=== PATIENT | male | born 1950 | race Caucasian/White ===

== ENCOUNTER → 2017-02-23 | Outpatient (CLI) | payer MEDICARE ==
[~2017-02-23] MED LIST: ALLO300T PO; GADOBUTROL 10 MMOL/10 ML VIAL ONE; LISI-167 PO; MILK140C PO; MULT-516 PO; OMEG1CAP12 PO; PANT40TA5 PO; VITA100022 PO
== END | disposition home or self-care (01) ==
LOC: CFH 08:14
DX: I81 Portal vein thrombosis (principal); K76.0 Fatty (change of) liver, not elsewhere classified
CPT/HCPCS: 74183; A9585

== ENCOUNTER → 2018-03-24 | Outpatient (CLI) | payer MEDICARE ==
[~2018-03-24] MED LIST changes: +GADOBUTROL 10 MMOL/10 ML PFS ONE; -GADOBUTROL 10 MMOL/10 ML VIAL ONE; -OMEG1CAP12 PO; +OMEG1CAP23 PO
== END | disposition home or self-care (01) ==
LOC: RAD 07:25
PROVIDERS: ATTEND Internal Medicine
DX: I81 Portal vein thrombosis (principal); K76.0 Fatty (change of) liver, not elsewhere classified
CPT/HCPCS: 74183; A9585

== ENCOUNTER 2018-06-08 09:33 | Emergency (ER) | payer MEDICARE, BC ==
[~2018-06-08] VITALS: Ht 172.7 cm; Wt 86.4 kg
[~2018-06-08 09:33] MED LIST changes: -GADOBUTROL 10 MMOL/10 ML PFS ONE
[2018-06-08] MEDS ORDERED: DILTIAZEM 30 MG TABLET PO SCH (10:00)
[2018-06-08] MEDS ORDERED: DILTIAZEM 60 MG TABLET ONE ×2 (10:13→10:53)
[2018-06-08 10:19] LABS: MEAN CORPUSCULAR HEMOGLOBIN 32.4 pg (27.5-34.5); MEAN CORPUSCULAR HGB CONC 33.9 g/dL (33.2-36.2); MEAN CORPUSCULAR VOLUME 95.5 fL (81-97); RED BLOOD COUNT 5.31 x10^6/uL (4.38-5.82); RED CELL DISTRIBUTION WIDTH 14.8 % (9.4-14.8)
[2018-06-08 10:25] LABS: ALBUMIN 4.1 g/dL (3.4-5.0); ANION GAP 7 mmol/L (5-15); CALCIUM 9.5 mg/dL (8.5-10.1); CHLORIDE 108 mmol/L (98-107); CREATININE 1.31 mg/dL (0.7-1.3)
[2018-06-08 10:28] LABS: INTERNATIONAL NORMALIZED RATIO 2.82 (0.93-1.1); PROTHROMBIN TIME 28.7 Seconds (9.6-11.5); TROPONIN I < 0.015 ng/mL (0.000-0.045)
[2018-06-08 10:56] LABS: BASOPHILS # (AUTO) 0.03 x10^3/uL (0-0.1); BASOPHILS % (AUTO) 1 % (0-1); EOSINOPHILS # (AUTO) 0.04 x10^3/uL (0-0.4); EOSINOPHILS % (AUTO) 1 % (1-7); LYMPHOCYTES # (AUTO) 1.16 x10^3/uL (1-3.4); LYMPHOCYTES % (AUTO) 22 % (22-44); MD SCAN; MEAN PLATELET VOLUME 10.5 fL (7.4-10.4); MONOCYTES # (AUTO) 0.44 x10^3/uL (0.2-0.8); MONOCYTES % (AUTO) 8 % (2-9); NEUTROPHILS # (AUTO) 3.64 x10^3/uL (1.8-6.8); NEUTROPHILS % (AUTO) 69 % (42-75); PLATELET COUNT 94 x10^3/uL (130-400)
[2018-06-08] MEDS ORDERED: DILTIAZEM 30 MG TABLET PO ONE (11:00)
[2018-06-08] MEDS ORDERED: VERAPAMIL 2.5 MG/ML, 2ML IVPush ONE (11:00)
[2018-06-08] MEDS ORDERED: VERAPAMIL 2.5 MG/ML, 2ML ONE (11:06)
[2018-06-08 13:15] VITALS: BP 102/62
[2018-06-09] MEDS ORDERED: DILT120T4 PO (09:43)
== END 2018-06-08 13:17 | disposition home or self-care (01) ==
LOC: ED 12:40
DX: I48.91 Unspecified atrial fibrillation (principal); Z79.01 Long term (current) use of anticoagulants; I10 Essential (primary) hypertension
CPT/HCPCS: 36415; 71045; 80048; 82040; 83880; 84484; 85025; 85610; 93005; 96374; 99285

== ENCOUNTER 2018-06-09 09:19 | Emergency (ER) | payer MEDICARE, BC ==
[~2018-06-09] VITALS: Ht 179.1 cm; Wt 87.6 kg
[2018-06-09] MEDS ORDERED: VERAPAMIL 2.5 MG/ML, 2ML ONE (09:37)
[2018-06-09] MEDS ORDERED: DILT120T4 PO (09:43)
[2018-06-09] MEDS ORDERED: VERAPAMIL 2.5 MG/ML, 2ML IVPush ONE (10:00)
[2018-06-09 11:22] VITALS: BP 105/74
== END 2018-06-09 11:50 | disposition home or self-care (01) ==
LOC: ED 10:28
DX: I48.91 Unspecified atrial fibrillation (principal); Z79.01 Long term (current) use of anticoagulants; I10 Essential (primary) hypertension; Z87.891 Personal history of nicotine dependence
CPT/HCPCS: 93005; 96374; 99284

== ENCOUNTER 2018-06-13 11:38 | Emergency (ER) | payer MEDICARE, BC ==
[~2018-06-13] VITALS: Ht 177.8 cm; Wt 87.0 kg
[~2018-06-13 11:38] MED LIST changes: +DILT120T4 PO
[2018-06-13 12:24] LABS: ALBUMIN 4.1 g/dL (3.4-5.0); ANION GAP 8 mmol/L (5-15); CALCIUM 9.2 mg/dL (8.5-10.1); CHLORIDE 105 mmol/L (98-107); CREATININE 1.56 mg/dL (0.7-1.3)
[2018-06-13 12:28] LABS: TROPONIN I < 0.015 ng/mL (0.000-0.045)
[2018-06-13 12:33] LABS: BASOPHILS # (AUTO) 0.03 x10^3/uL (0-0.1); BASOPHILS % (AUTO) 1 % (0-1); EOSINOPHILS # (AUTO) 0.08 x10^3/uL (0-0.4); EOSINOPHILS % (AUTO) 1 % (1-7); LYMPHOCYTES # (AUTO) 1.79 x10^3/uL (1-3.4); LYMPHOCYTES % (AUTO) 26 % (22-44); MD SCAN; MEAN CORPUSCULAR HEMOGLOBIN 32.5 pg (27.5-34.5); MEAN CORPUSCULAR HGB CONC 34.3 g/dL (33.2-36.2); MONOCYTES # (AUTO) 0.63 x10^3/uL (0.2-0.8); MONOCYTES % (AUTO) 9 % (2-9); NEUTROPHILS # (AUTO) 4.24 x10^3/uL (1.8-6.8); NEUTROPHILS % (AUTO) 63 % (42-75); PLATELET COUNT 99 x10^3/uL (130-400); RED BLOOD COUNT 5.22 x10^6/uL (4.38-5.82); RED CELL DISTRIBUTION WIDTH 14.9 % (9.4-14.8)
[2018-06-13] MEDS ORDERED: WARF3TAB52 PO (13:19)
[2018-06-13] MEDS ORDERED: METOPROLOL TARTRATE 50 MG TABLET ONE (13:22)
[2018-06-13] MEDS ORDERED: METOPROLOL TARTRATE 50 MG TABLET PO ONE (13:30)
[2018-06-13 15:08] VITALS: BP 140/81
== END 2018-06-13 15:10 | disposition home or self-care (01) ==
LOC: ED 15:04
DX: I48.0 Paroxysmal atrial fibrillation (principal); I81 Portal vein thrombosis; I10 Essential (primary) hypertension; Z86.711 Personal history of pulmonary embolism; Z87.891 Personal history of nicotine dependence; Z79.01 Long term (current) use of anticoagulants
CPT/HCPCS: 36415; 80048; 82040; 83735; 84484; 85025; 93005; 99285

== ENCOUNTER 2018-06-27 10:17 | Emergency (ER) | payer MEDICARE, BC ==
[~2018-06-27] VITALS: Ht 177.8 cm; Wt 88.3 kg
[~2018-06-27 10:17] MED LIST changes: +WARF3TAB52 PO
[2018-06-27 11:19] VITALS: BP 120/80
[2018-06-27] MEDS ORDERED: DILT240C61 PO (11:22)
[2018-06-27] MEDS ORDERED: CARDIA XT (11:22)
[2018-06-27 11:33] LABS: INTERNATIONAL NORMALIZED RATIO 3.19 (0.93-1.1); PROTHROMBIN TIME 32.4 Seconds (9.6-11.5)
[2018-06-27 11:35] LABS: ANION GAP 10 mmol/L (5-15); CALCIUM 8.4 mg/dL (8.5-10.1); CHLORIDE 108 mmol/L (98-107); CREATININE 1.31 mg/dL (0.7-1.3)
== END 2018-06-27 12:27 | disposition home or self-care (01) ==
LOC: ED 10:54
DX: I48.0 Paroxysmal atrial fibrillation (principal); I10 Essential (primary) hypertension
CPT/HCPCS: 36415; 80048; 83735; 85610; 93005; 99285

== ENCOUNTER 2019-01-26 11:59 | Outpatient (CLI) | payer BC, MEDICARE ==
[~2019-01-26 11:59] MED LIST changes: +CARDIA XT; +DILT240C61 PO
== END 2019-01-26 12:00 | disposition home or self-care (01) ==
LOC: CLISVCS 11:59 → CACL 12:00 → CLISVCS 12:00 → EDSTATUS 12:15
PROVIDERS: ATTEND Internal Medicine Cardiovascular Disease
DX: I48.0 Paroxysmal atrial fibrillation (principal); Z53.9 Procedure and treatment not carried out, unspecified reason; I10 Essential (primary) hypertension; G47.30 Sleep apnea, unspecified; Z72.89 Other problems related to lifestyle; Z91.013 Allergy to seafood; Z87.891 Personal history of nicotine dependence
CPT/HCPCS: 93005

== ENCOUNTER 2020-05-10 15:26 | Emergency (ER) | payer MEDICARE ==
[~2020-05-10] VITALS: Ht 177.8 cm; Wt 89.2 kg
[2020-05-10 17:13] LABS: ALANINE AMINOTRANSFERASE 67 U/L (12-78); ALBUMIN 4.2 g/dL (3.4-5.0); ANION GAP 10 mmol/L (5-15); CALCIUM 9.4 mg/dL (8.5-10.1); CHLORIDE 106 mmol/L (98-107); CREATININE 1.42 mg/dL (0.7-1.3)
--- NOTE | 2020-05-10 17:14 | NUR ---
pt up to use restroom. prior to ambulation pt was in sinus rhythm at a rate of 80. post ambulating pt placed on shearing shed hand pt is agian in a fib at a rate of 110 to 125. made aware.
[2020-05-10 17:16] LABS: ALKALINE PHOSPHATASE 60 U/L (45-117); BILIRUBIN,TOTAL 0.6 mg/dL (0.2-1.0); TOTAL PROTEIN 8.6 g/dL (6.4-8.2); TROPONIN I < 0.015 ng/mL (0.000-0.045)
--- NOTE | 2020-05-10 17:29 | NUR ---
in room for recheck
[2020-05-10] MEDS ORDERED: METOPROLOL 1 MG/ML, 5ML IVPush ONE (17:30)
[2020-05-10] MEDS ORDERED: METOPROLOL 1 MG/ML, 5ML ONE (17:32)
--- NOTE | 2020-05-10 17:38 | NUR ---
pt medicated per order.
[2020-05-10 17:42] LABS: MEAN CORPUSCULAR HEMOGLOBIN 32.4 pg (27.5-34.5); MEAN CORPUSCULAR HGB CONC 33.5 g/dL (33.2-36.2); MEAN CORPUSCULAR VOLUME 96.8 fL (81-97); PLATELET COUNT 97 x10^3/uL (130-400); RED BLOOD COUNT 5.26 x10^6/uL (4.38-5.82); RED CELL DISTRIBUTION WIDTH 14.9 % (9.4-14.8)
[2020-05-10 17:43] LABS: BASOPHILS # (AUTO) 0.02 x10^3/uL (0-0.1); BASOPHILS % (AUTO) 1 % (0-1); EOSINOPHILS # (AUTO) 0.07 x10^3/uL (0-0.4); EOSINOPHILS % (AUTO) 2 % (1-7); LYMPHOCYTES # (AUTO) 1.43 x10^3/uL (1-3.4); LYMPHOCYTES % (AUTO) 33 % (22-44); MONOCYTES # (AUTO) 0.46 x10^3/uL (0.2-0.8); MONOCYTES % (AUTO) 11 % (2-9); NEUTROPHILS # (AUTO) 2.39 x10^3/uL (1.8-6.8); NEUTROPHILS % (AUTO) 55 % (42-75)
[2020-05-10 17:44] LABS: MD SCAN
[2020-05-10 18:08] VITALS: BP 113/75
== END 2020-05-10 19:14 | disposition home or self-care (01) ==
LOC: ED 16:19
DX: I48.0 Paroxysmal atrial fibrillation (principal); R00.2 Palpitations; I11.9 Hypertensive heart disease without heart failure
CPT/HCPCS: 36415; 71045; 80053; 84484; 85025; 93005; 96374; 99285

== ENCOUNTER → 2020-06-25 | Outpatient (CLI) | payer MEDICARE ==
[~2020-06-25] MED LIST changes: +REGADENOSON 0.4 MG/5 ML SYRINGE ONE
== END | disposition home or self-care (01) ==
LOC: RAD 08:00
PROVIDERS: ATTEND Internal Medicine Clinical Cardiac Electrophysiology
DX: I48.0 Paroxysmal atrial fibrillation (principal)
CPT/HCPCS: 78452; 93017; A9502; J2785